=== PATIENT | male | born 1965 | race Caucasian/White ===

== ENCOUNTER 2022-01-26 09:02 | Emergency (ER) | payer BC ==
[2022-01-26] VITALS (8 sets, daily range): BP systolic 121–146; BP diastolic 74–97
[~2022-01-26] VITALS: Ht 167.6 cm; Wt 67.0 kg
[~2022-01-26 09:02] MED LIST: ADVAIR DISK1 INH; NAPROSYN500 MG PO
== END 2022-01-26 11:27 | disposition home or self-care (01) | DRG 552 ==
LOC: ED 09:02
DX: M54.50 Low back pain, unspecified (principal); M54.6 Pain in thoracic spine